=== PATIENT | male | born 1985 | race Caucasian/White ===

== ENCOUNTER 2021-02-26 17:40 | Emergency (ER) | payer OTHER ==
[~2021-02-26] VITALS: Ht 177.8 cm; Wt 88.6 kg
[2021-02-26] MEDS ORDERED: LIDOCAINE 1% MDV 20ML VIAL SC ONE (18:10)
[2021-02-26] MEDS ORDERED: CEPHALEXIN 500 MG CAP PO ONE (18:55)
[2021-02-26] MEDS ORDERED: CEPH500C PO (19:03)
[2021-02-26 19:09] VITALS: BP 139/75
== END 2021-02-26 19:24 | disposition home or self-care (01) ==
LOC: M ED 17:40
DX: S81.811A Laceration without foreign body, right lower leg, initial encounter (principal); W26.8XXA Contact with other sharp object(s), not elsewhere classified, initial encounter; Y92.9 Unspecified place or not applicable; Y93.9 Activity, unspecified; Y99.9 Unspecified external cause status; F17.200 Nicotine dependence, unspecified, uncomplicated